=== PATIENT | male | born 1955 | race Caucasian/White ===

== ENCOUNTER → 2018-04-14 15:12 | Outpatient (CLI) | payer BC, SELFPAY ==
--- NOTE | 2018-04-14 | DI.RAD.S_ITS ---
PROCEDURE: XR CHEST 2V INDICATIONS: COUGH TECHNIQUE: 2 views of the chest were acquired. COMPARISON: None. FINDINGS: Surgical changes and devices: None. Lungs and pleura: No pleural effusions or pneumothorax. Lungs are clear. Mediastinum: Mediastinal contours are normal. Heart size is normal. Bones and chest wall: No suspicious bony abnormalities. Soft tissues appear unremarkable. IMPRESSION: No acute cardiopulmonary findings. Dictated by: Akanksha Maddox M.D. on 04/14/2018 at 15:58 Approved by: Akanksha Maddox M.D. on 04/14/2018 at 15:59
== END ==
PROVIDERS: PCP Internal Medicine; Visit Provider Internal Medicine
DX: R05 Cough (principal)
CPT/HCPCS: 71046

== ENCOUNTER → 2019-04-24 08:19 | Outpatient (CLI) | payer MEDICARE, BC, SELFPAY ==
--- NOTE | 2019-04-24 | DI.US.S_ITS ---
PROCEDURE: US ABD AORTA ANEURYSM SCREEN INDICATIONS: Encounter for screening for cardiovascular disorde TECHNIQUE: Real time scanning was performed of the aorta and iliac arteries, with image documentation. COMPARISON: None. FINDINGS: Aorta: Proximal aortic diameter measures 1.6 cm. Mid-aorta measures 1.5 cm. Distal aortic diameter is 1.1 cm. Iliac arteries: Right common iliac artery measures 0.9 cm. Left common iliac artery measures 1.0 cm. IMPRESSION: No aneurysm found. Dictated by: Kareem Jose M.D. on 04/24/2019 at 9:51 Approved by: Kareem Jose M.D. on 04/24/2019 at 9:52
== END ==
PROVIDERS: PCP Internal Medicine; Visit Provider Internal Medicine
DX: Z13.6 Encounter for screening for cardiovascular disorders (principal)
CPT/HCPCS: 76706